=== PATIENT | female | born 1995 | race Two or more races ===

== ENCOUNTER 2021-01-13 05:55 | Day surgery (SDC) | payer MEDICAID ==
[2021-01-05 14:55] LABS: BASOPHILS % (AUTO) 0.5 % (0-1); EOSINOPHILS # (AUTO) 0.1 X10'3 (0-0.9); EOSINOPHILS % (AUTO) 1.3 % (0-6); LYMPHOCYTES # (AUTO) 2.2 X10'3 (1.1-4.8); LYMPHOCYTES % (AUTO) 24.3 % (21-51); MEAN CORPUSCULAR HEMOGLOBIN 29.7 PG (27.0-31.0); MEAN CORPUSCULAR HGB CONC 33.9 g/dL (33.0-36.5); MEAN CORPUSCULAR VOLUME 87.4 FL (78-98); MEAN PLATELET VOLUME 9.7 FL (7.4-10.4); MONOCYTES # (AUTO) 0.6 X10'3 (0-0.9); MONOCYTES % (AUTO) 6.3 % (2-12); NEUTROPHILS # (AUTO) 6.1 X10'3 (1.8-7.7); NEUTROPHILS % (AUTO) 67.6 % (42-75); PRE OP HEMATOCRIT 40.1 % (35.0-45.0); PRE OP HEMOGLOBIN 13.6 g/dL (12.0-16.0); PRE OP PLATELET COUNT 351 X10'3 (140-440); RED BLOOD COUNT 4.59 X10'6 (4.20-5.60)
[2021-01-05 15:38] LABS: HCG SERUM QL NEGATIVE
[~2021-01-13] VITALS: Ht 154.9 cm; Wt 85.4 kg
[2021-01-13] VITALS (7 sets, daily range): BP systolic 97–117; BP diastolic 47–66
[~2021-01-13 05:55] MED LIST: NO HOME MEDS; cefazolin/dext.iso 2gm/100ml IV ONE; famotidine 20mg tablet PO ONE; ringers solution, lacted 1,000 ML IV SCH
[2021-01-13] MEDS ORDERED: sevoflurane 250ml liquid IH ONE (08:06)
[2021-01-13] MEDS ORDERED: meperidine/PF 25mg/ml syringe IV PRN ×3 (08:25)
[2021-01-13] MEDS ORDERED: morphine 2 MG/ML inj. syringe IV PRN (08:25)
[2021-01-13] MEDS ORDERED: morphine 4 MG/ML inj SYRINge IV PRN (08:25)
[2021-01-13] MEDS ORDERED: proCHLORperazine 10 MG/2 ml inj IV PRN (08:25)
[2021-01-13] MEDS ORDERED: ringers solution, lacted 1,000 ML IV SCH (08:25)
[2021-01-13] MEDS ORDERED: ondansetron/PF 4mg/2ml inj IV PRN (08:25)
[2021-01-13] MEDS ORDERED: BUPIVAcaine 0.5% W/EPI /PF 10ml vial ONE (08:56)
[2021-01-13] MEDS ORDERED: midazolam 1 mg/ML 2ml injection ONE (09:04)
[2021-01-13] MEDS ORDERED: fentaNYL/PF 50MCG/1 ML 2ML syringe ONE (09:04)
[2021-01-13] MEDS ORDERED: rocuronium 10mg/ml inj IV ONE ×2 (09:13→10:31)
[2021-01-13] MEDS ORDERED: dexamethasone sod phosphate 4mg/ml inj. ONE ×2 (09:13→10:31)
[2021-01-13] MEDS ORDERED: ondansetron/PF 4mg/2ml inj ONE ×2 (09:13→10:31)
[2021-01-13] MEDS ORDERED: propofol inj 20 ML IV ONE ×2 (09:13→10:31)
[2021-01-13] MEDS ORDERED: LIDOcaine 2% (20mg/ml) 5ml vial ONE ×2 (09:13→10:31)
[2021-01-13] MEDS ORDERED: glycopyrrolate 0.2mg/ml inj ONE ×2 (09:13→10:31)
[2021-01-13] MEDS ORDERED: neostigmine methylsulfate 1 MG/ML 10ml vial ONE ×2 (09:13→10:31)
[2021-01-13] MEDS ORDERED: meperidine/PF 25mg/ml syringe ONE (09:43)
--- NOTE | 2021-01-13 10:07 | NUR ---
PT MORE AWAKE VSS ON RA SAT 99% DENIES PAIN, SANDRINE PO'S CONT TO MONITOR. Addendum: 01/13/21 at 1008 by Ivy Wiggins RN Amended: Links added.
--- NOTE | 2021-01-13 10:16 | NUR ---
PT AWAKE WANTS TO CALL WANTS TO GO HOME. VSS SCANT AMT BLEEDING ON VLADIMIR PAD, DC INSTR GIVEN NO ?'S OR CONCERNS MEETS CRITERIA TO DC HOME. Addendum: 01/13/21 at 1017 by Ivy Wiggins RN Amended: Links added.
== END 2021-01-13 10:32 | disposition home or self-care (01) ==
LOC: PAS 05:55
PROVIDERS: ATTEND Obstetrics & Gynecology
DX: Z30.2 Encounter for sterilization (principal); E66.9 Obesity, unspecified; Z68.35 Body mass index [BMI] 35.0-35.9, adult; Z20.822 Contact with and (suspected) exposure to COVID-19; Z72.89 Other problems related to lifestyle; Z87.891 Personal history of nicotine dependence; Z79.899 Other long term (current) drug therapy
CPT/HCPCS: 36415; 58670; 82948; 84703; 85025; J1100; J2001; J2175; J2250; J2405; J2704; J2710; J3010; J7120; U0003; U0005; Z7506; Z7512; A4618; J3490